=== PATIENT | female | born 1970 | race Caucasian/White ===

== ENCOUNTER → 2017-02-07 | Outpatient (CLI) | payer BC | END | disposition home or self-care (01) | LOC: CFH 14:10 | PROVIDERS: ATTEND Nurse Practitioner Primary Care | DX: Z12.31 Encounter for screening mammogram for malignant neoplasm of breast (principal) | CPT/HCPCS: 77063; G0202 ==

== ENCOUNTER → 2017-12-12 | Outpatient (CLI) | payer BC ==
[~2017-12-12] MED LIST: OMNIPAQUE 350 MG/ML, 100ML BOTTLE ONE
== END | disposition home or self-care (01) ==
LOC: RAD 14:59
PROVIDERS: ATTEND Nurse Practitioner Primary Care
DX: R93.8 Abnormal findings on diagnostic imaging of other specified body structures (principal); K92.1 Melena; E55.9 Vitamin D deficiency, unspecified; E78.2 Mixed hyperlipidemia; R53.83 Other fatigue
CPT/HCPCS: 74177; Q9967

== ENCOUNTER 2020-08-12 13:07 | Emergency (ER) | payer BC ==
[~2020-08-12] VITALS: Ht 162.6 cm; Wt 68.0 kg
--- NOTE | 2020-08-12 13:29 | NUR ---
PT BIBA. PER EMS PT FELL APPROX 5FT OFF LADDER WHEN LADDER SLID DOWN WALL IT WAS LEANED ON. PT DENIED ANY MIDLINE BACK OR NECK PAIN, DENIES LOC, AND DENIES BLOOD THINNERS TO EMS. PT NOW COMPLAINING OF NECK TENDERNESS AND HEAD PAIN. PT PLACED IN C COLLAR, DAX HARRISON AT BEDSIDE, PT RESTING IN RNEY, MONITORING IN PLACE, RONI AT THIS TIME, PT STATES PAIN IS 4/10 TO R ARM, R BACK, AND HEAD & NECK, WCTM.
[2020-08-12] MEDS ORDERED: ONDANSETRON ODT 4 MG ONE (14:04)
[2020-08-12] MEDS ORDERED: OXYcodone/APAP 5/325MG TABLET ONE (14:04)
[2020-08-12] MEDS ORDERED: ONDANSETRON ODT 4 MG PO ONE (14:30)
[2020-08-12] MEDS ORDERED: OXYcodone/APAP 5/325MG TABLET PO ONE (14:30)
--- NOTE | 2020-08-12 14:31 | NUR ---
[facility]
[2020-08-12] MEDS ORDERED: DIAZEPAM 5 MG TABLET ONE (15:53)
[2020-08-12 15:56] VITALS: BP 131/74
[2020-08-12] MEDS ORDERED: DIAZEPAM 5 MG TABLET PO ONE (16:00)
== END 2020-08-12 16:23 | disposition home or self-care (01) ==
LOC: ED 13:29
DX: S06.0X0A Concussion without loss of consciousness, initial encounter (principal); S39.012A Strain of muscle, fascia and tendon of lower back, initial encounter; S29.012A Strain of muscle and tendon of back wall of thorax, initial encounter; S50.311A Abrasion of right elbow, initial encounter; W11.XXXA Fall on and from ladder, initial encounter; Y93.89 Activity, other specified; Y92.89 Other specified places as the place of occurrence of the external cause; Y99.8 Other external cause status
CPT/HCPCS: 70450; 72072; 72110; 72125; 73080; 99285; Q0162

== ENCOUNTER → 2020-10-06 | Outpatient (CLI) | payer BC ==
[~2020-10-06] MED LIST changes: +CHOL10003 PO; +DIPH25TA50 PO; +MULT-449 PO; -OMNIPAQUE 350 MG/ML, 100ML BOTTLE ONE
== END | disposition home or self-care (01) ==
LOC: STAR 09:31
PROVIDERS: ATTEND Obstetrics & Gynecology
DX: Z20.822 Contact with and (suspected) exposure to COVID-19 (principal); N93.9 Abnormal uterine and vaginal bleeding, unspecified; N94.6 Dysmenorrhea, unspecified
CPT/HCPCS: U0003; U0005

== ENCOUNTER 2020-10-10 05:28 | Day surgery (SDC) | payer BC ==
[2020-10-06 10:26] VITALS: BP 110/78
[~2020-10-10] VITALS: Ht 162.6 cm; Wt 95.7 kg
[2020-10-10] MEDS ORDERED: LACTATED RINGERS 1,000 ML IV SCH (06:30)
[2020-10-10] MEDS ORDERED: CHLORHEXIDINE 15 ML UDC PO ONE (06:30)
[2020-10-10 06:36] LABS: HCG UR SG 1.014 (1.003-1.030)
[2020-10-10] MEDS ORDERED: FENTANYL PF 100 MCG/2ML ONE ×2 (06:58→11:08)
[2020-10-10] MEDS ORDERED: MIDAZOLAM 1 MG/ML, 2ML ONE (06:58)
[2020-10-10] MEDS ORDERED: ONDANSETRON 2MG/ML, 2ML ONE (06:58)
[2020-10-10] MEDS ORDERED: DEXAMETHASONE 4 MG/ML, 1ML ONE ×2 (06:58→11:08)
[2020-10-10] MEDS ORDERED: PROPOFOL 10 MG/ML, 20ML ONE ×2 (06:58→11:08)
[2020-10-10] MEDS ORDERED: CEFAZOLIN 1,000 MG ONE ×2 (06:58→11:08)
[2020-10-10] MEDS ORDERED: HYDROcodone/APAP 7.5-325MG/15ML UDC PO PRN (07:30)
[2020-10-10] MEDS ORDERED: OXYcodone 5 MG/5 ML ORAL.SOL UDC PO PRN (07:30)
[2020-10-10] MEDS ORDERED: MEPERIDINE/PF 25MG/0.5ML IVPush PRN (07:30)
[2020-10-10] MEDS ORDERED: ONDANSETRON 2MG/ML, 2ML IVPush PRN (07:30)
[2020-10-10] MEDS ORDERED: FENTANYL PF 100 MCG/2ML IV PRN (07:30)
[2020-10-10] MEDS ORDERED: PROMETHAZINE 25 MG/ML, 1ML IVPush PRN (07:30)
[2020-10-10] MEDS ORDERED: HYDROmorphone 1 MG/ML, 1ML INJ IVPush PRN (07:30)
[2020-10-10] MEDS ORDERED: SILVER NITRATE STICK TP ONE (08:02)
[2020-10-10] MEDS ORDERED: OXYC1TAB14 PO (08:54)
[2020-10-10] MEDS ORDERED: IBUP-1223 PO (08:54)
[2020-10-10] MEDS ORDERED: MIDAZOLAM 1 MG/ML, 5ML ONE (11:08)
[2020-10-10] MEDS ORDERED: KETOROLAC 30 MG/1 ML ONE (11:08)
== END 2020-10-10 11:15 | disposition home or self-care (01) ==
LOC: OUT 05:28
PROVIDERS: ATTEND Obstetrics & Gynecology
DX: N93.9 Abnormal uterine and vaginal bleeding, unspecified (principal); N94.6 Dysmenorrhea, unspecified; I10 Essential (primary) hypertension; Z88.0 Allergy status to penicillin; Z88.1 Allergy status to other antibiotic agents; Z98.890 Other specified postprocedural states
CPT/HCPCS: 58120; 58563; 81025; 88305; J0690; J1100; J1170; J1885; J2250; J2405; J2704; J3010; J7120